=== PATIENT | female | born 1980 | race Asian ===

== ENCOUNTER 2017-05-11 00:05 | Inpatient (IN) | payer SELFPAY ==
[~2017-05-11] VITALS: Ht 162 cm; Wt 64.4 kg
[2017-05-11] MEDS ORDERED: LACTATED RINGERS 1,000 ML IV SCH (01:09)
[2017-05-11 01:10] VITALS: BP 109/57
[2017-05-11 01:47] LABS: BASOPHILS # (AUTO) 0.1 K/uL (0.00-0.22); BASOPHILS % (AUTO) 0.6 % (0.0-2.0); EOSINOPHILS # (AUTO) 0.3 K/uL (0-0.4); EOSINOPHILS % (AUTO) 2.8 % (0.0-4.0); HEMATOCRIT 32.9 % (36-48); HEMOGLOBIN 10.6 g/dL (12.0-16.0); LYMPHOCYTES # (AUTO) 1.5 K/uL (2.5-16.5); MEAN CORPUSCULAR HEMOGLOBIN 29 pg (27-31); MEAN CORPUSCULAR HGB CONC 32 g/dL (33-37); MEAN CORPUSCULAR VOLUME 91 fL (80-94); MONOCYTES # (AUTO) 0.6 K/uL (0.8-1.0); MONOCYTES % (AUTO) 5.8 % (1.7-9.3); NEUTROPHILS # (AUTO) 7.6 K/uL (1.8-7.7); NEUTROPHILS % (AUTO) 75.8 % (42.2-75.2); PLATELET COUNT (AUTO) 174 K/uL (140-450); RED BLOOD CELL COUNT(AUTO) 3.61 MIL/uL (4.20-5.40); RED CELL DISTRIBUTION WIDTH 12.7 % (11.6-13.7); WHITE BLOOD COUNT (AUTO) 10.1 K/uL (4.8-10.8)
[2017-05-11] MEDS ORDERED: CITRIC ACID/SODIUM CITRATE 30 ML UDC PO SCH (02:00)
[2017-05-11 02:15] LABS: ALBUMIN 2.6 g/dL (3.4-5.0); ANION GAP 13.1 (8-16); CALCIUM 8.1 mg/dL (8.5-10.1); CARBON DIOXIDE 23.6 mmol/L (21-32); CREATININE 0.5 mg/dL (0.6-1.3); POTASSIUM 3.7 mmol/L (3.5-5.1); TOTAL BILIRUBIN 0.3 mg/dL (0.0-1.0); TOTAL PROTEIN, SERUM 6.5 g/dL (6.4-8.2)
[2017-05-11 02:25] LABS: APPEARANCE,URINE SL CLOUDY (CLEAR); BILIRUBIN,URINE NEGATIVE (NEGATIVE); BLOOD, URINE 2+ (NEGATIVE); COLOR,URINE YELLOW (YELLOW); LEUKOCYTE ESTERASE ,URINE NEGATIVE (NEGATIVE); NITRITE, URINE NEGATIVE (NEGATIVE); PROTEIN,URINE NEGATIVE (NEGATIVE); UGLUCOSE NEGATIVE (NEGATIVE); UROBILINOGEN,URINE 0.2 EU/dL (0.2 - 1)
[2017-05-11 02:28] LABS: HIV RAPID SCREEN NON-REACTIVE (NON REACTIV)
[2017-05-11] MEDS ORDERED: TERBUTALINE 1 MG/ML VIAL SUBQ SCH (02:45)
[2017-05-11] MEDS ORDERED: TERBUTALINE 1 MG/ML VIAL SUBQ ONE (02:54)
[2017-05-11] MEDS ORDERED: IRON65TA11 PO (03:05)
[2017-05-11] MEDS ORDERED: PREN-546 PO (03:05)
[2017-05-11 03:18] LABS: BACTERIA,URINE FEW /HPF (None Seen); SQUAMOUS EPITHELIAL CELL,UR 0-3 (FEW) /LPF (0-3 (FEW)); WBC,URINE 0-5 (RARE) /HPF (0-5)
[2017-05-11] MEDS ORDERED: CITRIC ACID/SODIUM CITRATE 30 ML UDC ONE (05:36)
[2017-05-11] MEDS ORDERED: ceFAZolin 1,000 MG VIAL ONE (05:37)
[2017-05-11] MEDS ORDERED: OXYTOCIN 10 UNITS/ML VIAL ONE ×2 (05:57→06:08)
[2017-05-11] MEDS ORDERED: TRIAMCINOLONE 10 MG/ML 5ML VIAL ONE (05:59)
[2017-05-11] MEDS ORDERED: ceFAZolin 1,000 MG VIAL IVP ONE (06:08)
[2017-05-11] MEDS ORDERED: METOCLOPRAMIDE 10 MG/2 ML INJ VIAL ONE (06:08)
[2017-05-11] MEDS ORDERED: ONDANSETRON 4 MG/2 ML VIAL ONE (06:08)
[2017-05-11] MEDS ORDERED: ROPIVACAINE 0.2%/NS PREMIX 0 ML EPI ONE (06:08)
[2017-05-11] MEDS ORDERED: MORPHINE PRES FREE 10 MG/10 ML AMP IV ONE (06:09)
[2017-05-11] MEDS ORDERED: diphenhydrAMINE 50 MG/ML VIAL IVP PRN (06:30)
[2017-05-11] MEDS ORDERED: ONDANSETRON 4 MG/2 ML VIAL IVP PRN (06:30)
[2017-05-11] MEDS ORDERED: KETOROLAC 30 MG/ML VIAL IVP PRN (06:30)
[2017-05-11] MEDS ORDERED: NALOXONE 0.4 MG/ML VIAL IVP PRN ×2 (06:30)
[2017-05-11 08:05] LABS: RAPID PLASMA REAGIN NON-REACTIVE (Non Reactiv)
--- NOTE | 2017-05-11 09:41 | NUR ---
PATIENT HAS BEEN SCREENED AND CATEGORIZED LOW NUTRITION RISK. PATIENT WILL BE SEEN WITHIN 7 DAYS OF ADMISSION. 05/17/[address]
[2017-05-11] MEDS: OXYTOCIN 20 UNITS/LR PREMIX 1,000 ML IV SCH (16:57)
[2017-05-12] MEDS: OXYTOCIN 20 UNITS/LR PREMIX 1,000 ML IV SCH (00:40)
[2017-05-12] MEDS: IBUPROFEN 800 MG TAB PO PRN ×2 (09:41→20:10)
[2017-05-13] MEDS ORDERED: SODIUM PHOSPHATE 118 ML ENEM RC PRN (06:35)
[2017-05-13] MEDS ORDERED: BISACODYL 5 MG TABEC PO PRN (06:35)
[2017-05-13 06:43] LABS: BASOPHILS % (AUTO) 0.3 % (0.0-2.0); EOSINOPHILS # (AUTO) 0.3 K/uL (0-0.4); EOSINOPHILS % (AUTO) 2.4 % (0.0-4.0); HEMATOCRIT 27.6 % (36-48); HEMOGLOBIN 9.3 g/dL (12.0-16.0); LYMPHOCYTES # (AUTO) 1.4 K/uL (2.5-16.5); LYMPHOCYTES % (AUTO) 12.3 % (20.5-51.1); MEAN CORPUSCULAR HEMOGLOBIN 31 pg (27-31); MEAN CORPUSCULAR HGB CONC 34 g/dL (33-37); MEAN CORPUSCULAR VOLUME 91 fL (80-94); MONOCYTES # (AUTO) 0.5 K/uL (0.8-1.0); MONOCYTES % (AUTO) 4.4 % (1.7-9.3); NEUTROPHILS # (AUTO) 9.6 K/uL (1.8-7.7); NEUTROPHILS % (AUTO) 80.6 % (42.2-75.2); PLATELET COUNT (AUTO) 166 K/uL (140-450); RED BLOOD CELL COUNT(AUTO) 3.03 MIL/uL (4.20-5.40); RED CELL DISTRIBUTION WIDTH 12.7 % (11.6-13.7); WHITE BLOOD COUNT (AUTO) 11.8 K/uL (4.8-10.8)
[2017-05-13] MEDS: IBUPROFEN 800 MG TAB PO PRN (15:58)
[2017-05-14] MEDS: IBUPROFEN 800 MG TAB PO PRN ×2 (00:28→08:53)
[2017-05-14] MEDS ORDERED: IBUP-1842 PO (08:00)
== END 2017-05-14 14:00 | disposition home or self-care (01) | DRG 766 ==
LOC: MFCC 00:05
PROVIDERS: ADMIT Obstetrics & Gynecology; ATTEND Obstetrics & Gynecology
PROC: 10D00Z1 Extraction of Products of Conception, Low, Open Approach (ICD-10-PCS; principal; 2017-05-11 06:00)
DX: O34.211 Maternal care for low transverse scar from previous cesarean delivery (principal); Z96.649 Presence of unspecified artificial hip joint; O89.4 Spinal and epidural anesthesia-induced headache during the puerperium; Z3A.39 39 weeks gestation of pregnancy; Z37.0 Single live birth
CPT/HCPCS: 36415; 80053; 81001; 85025; 86592; 86886; 86900; 86901; J0690; J1885; J2270; J2405; J2590; J2765; J2795; J3105; J3301; J7060; J7120